=== PATIENT | female | born 2000 | race Hispanic/Latino ===

== ENCOUNTER 2021-03-06 10:08 | Emergency (ER) | payer OTHER, SELFPAY ==
[2021-03-06 10:43] LABS: Urine Bacteria <20 /HPF (<20); Urine RBC >50 /HPF (NONE SEEN)
[2021-03-06] MEDS ORDERED: ONDANSETRON 4 MG (ODT) TAB ONE (10:54)
[2021-03-06] MEDS ORDERED: SMZ./TMP. 800/160 MG TABLET ONE (10:59)
--- NOTE | 2021-03-06 11:46 | ER ---
Nurse's Notes [facility] Name: Jhonathan Guzman Age: 21 yrs Sex: Female : 2000 Arrival Date: 03/06/2021 Time: 10:10 Bed 7 Private MD: Diagnosis: UTI/ Urinary tract infection, site not specified Presentation: 03/06 10:21 Chief complaint: Patient states: L flank pain that radiates to ABD began last night, vg1 states blood in urine and burning upon urination began this morning. NV yesterday. Coronavirus screen: Vaccine status: Patient reports being unvaccinated. Client denies travel out of the [place] in the last 14 days. Ebola Screen: Patient negative for fever greater than or equal to 101.5 degrees Fahrenheit, and additional compatible Ebola Virus Disease symptoms. Initial Sepsis Screen: Does the patient meet any 2 criteria? HR > 90 bpm. Risk Assessment: Do you want to hurt yourself or someone else? Patient reports no desire to harm self or others. Onset of symptoms was March 05, 2021. 10:21 Method Of Arrival: Ambulatory vg1 10:21 Acuity: BRENDAN 3 vg1 10:28 Initial Sepsis Screen: Does the patient have a suspected source of infection? No. ll3 Patient's initial sepsis screen is negative. Triage Assessment: 10:23 General: Appears in no apparent distress. comfortable, Behavior is calm, cooperative. vg1 Pain: Denies pain. Complains of pain in Left flank and LLQ Pain currently is 0 out of 10 on a pain scale. at worst was 8 out of 10 on a pain scale. Also complains of nausea. 10:23 : Reports burning with urination, blood in urine. 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 Client reports having NOT received the Covid vaccine. - Social history:: Smoking status: Patient denies any tobacco usage or history of. Smoking status: Patient denies any tobacco usage or history of. Screenin:23 Abuse screen: Denies threats or abuse. Nutritional screening: No deficits noted. ll3 Tuberculosis screening: No symptoms or risk factors identified. 10:28 Fall Risk None identified. ll3 Assessment: 10:22 General: Appears in no apparent distress. comfortable, Behavior is calm, cooperative. ll3 Pain: Denies pain. Neuro: Level of Consciousness is awake, alert, obeys commands, Oriented to person, place, time, situation, Gait is steady, Speech is normal, Facial symmetry appears normal. Cardiovascular: Patient's skin is warm and dry. Respiratory: Airway is patent Trachea midline Respiratory effort is even, unlabored, Respiratory pattern is regular, symmetrical. GI: Abdomen is flat, non-distended. Derm: Skin is pink, warm \T\ dry. Musculoskeletal: Range of motion: intact in all extremities. 11:05 Reassessment: Patient appears in no apparent distress at this time. No changes from ll3 previously documented assessment. Patient and/or family updated on plan of care and expected duration. Pain level reassessed. Patient is alert, oriented x 3, equal unlabored respirations, skin warm/dry/pink. Patient denies pain at this time. Vital Signs: 10:16 BP 139 / 82; Pulse 80; Resp 16; Pulse Ox 100% ; ll3 10:21 BP 139 / 82; Pulse 105; Resp 16; Temp 99.0; Pulse Ox 100% ; Weight 58.97 kg; Height 4 vg1 ft. 11 in. (149.86 cm); Pain 5/10; 11:15 BP 120 / 74; Pulse 75; Resp 16; Pulse Ox 100% on R/A; ll3 11:53 BP 128 / 81; Pulse 73; Resp 16; Pulse Ox 100% ; ll3 10:21 Body Mass Index 26.26 (58.97 kg, 149.86 cm) vg1 ED Course: 10:10 Patient arrived in ED. ds1 10:15 Geremias Shore PA is PHCP. cp 10:15 Juanjose Saunders MD is Attending Physician. cp 10:18 Herminio Brandon RN is Primary Nurse. ll3 10:23 Triage completed. vg1 10:23 Patient has correct armband on for positive identification. Bed in low position. Call ll3 light in reach. Side rails up X 1. 10:23 Patient placed. vg1 10:27 Urine Microscopic Only Sent. ll3 11:54 No provider procedures requiring assistance completed. Patient did not have IV access ll3 during this emergency room visit. Administered Medications: 10:58 Drug: Zofran (Ondansetron) 4 mg Route: PO; jl7 11:30 Follow up: Response: No adverse reaction ll3 11:02 Drug: Bactrim (trimethoprim-sulfamethoxazole) (160 mg-800 mg (DS) 1 tablet Route: PO; ll3 11:39 Follow up: Response: No adverse reaction ll3 Outcome: 11:46 Discharge ordered by . bren 11:55 Discharged to home ambulatory. ll3 11:55 Condition: stable 11:55 Discharge instructions given to patient, Instructed on discharge instructions, follow up and referral plans. medication usage, Demonstrated understanding of instructions, follow-up care, medications, Prescriptions given X 3. 11:56 Patient left the ED. ll3 Signatures: Ping Melvin ds1 Geremias Shore PA PA cp Leal, Jahala, RN RN jl7 Izabela Chinchilla RN RN vg1 Herminio Brandon RN RN ll3
--- NOTE | 2021-03-06 11:46 | EDPHYS ---
Physician Documentation [facility] Name: Jhonathan Guzman Age: 21 yrs Sex: Female : 2000 Arrival Date: 03/06/2021 Time: 10:10 Bed 7 Private MD: ED Physician Juanjose Saunders HPI: 03/06 10:30 This 21 yrs old Female presents to ER via Ambulatory with complaints of Blood cp In Urine, Low Back Pain. 10:30 The patient presents with urinary symptoms, dysuria, hematuria. cp 10:30 Onset: The symptoms/episode began/occurred this morning. Associated signs and symptoms: cp Pertinent positives: nausea, left side low back pain that started last night, Pertinent negatives: constipation, fever, vomiting, abdominal pain. Severity of symptoms: in the emergency department the symptoms are unchanged, despite home interventions. 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 Client reports having NOT received the Covid vaccine. - Social history:: Smoking status: Patient denies any tobacco usage or history of. Smoking status: Patient denies any tobacco usage or history of. ROS: 10:35 Constitutional: Negative for body aches, chills, fever, poor PO intake. cp 10:35 Eyes: Negative for injury, pain, redness, and discharge. cp 10:35 ENT: Negative for ear pain, sore throat, difficulty swallowing, difficulty handling secretions. 10:35 Cardiovascular: Negative for chest pain. 10:35 Respiratory: Negative for cough, shortness of breath, wheezing. 10:35 Abdomen/GI: Positive for nausea, Negative for abdominal pain, vomiting, diarrhea, constipation, anorexia. 10:35 Back: Positive for pain at rest, of the left side of lower back. 10:35 : Positive for hematuria, burning with urination, Negative for vaginal bleeding, vaginal discharge. 10:35 Neuro: Negative for altered mental status, headache, numbness, weakness. 10:35 All other systems are negative. Exam: 10:40 Constitutional: The patient appears in no acute distress, alert, awake, comfortable, cp non-toxic, well developed, well nourished. 10:40 Head/Face: Normocephalic, atraumatic. cp 10:40 Eyes: Periorbital structures: appear normal, Conjunctiva: normal, no exudate, no injection, Sclera: no appreciated abnormality, Lids and lashes: appear normal, bilaterally. 10:40 ENT: External ear(s): are unremarkable, Nose: is normal, Mouth: Lips: moist, Oral mucosa: moist, Posterior pharynx: Airway: no evidence of obstruction, patent. 10:40 Chest/axilla: Inspection: normal. 10:40 Cardiovascular: Rate: tachycardic. 10:40 Respiratory: the patient does not display signs of respiratory distress, Respirations: normal, no use of accessory muscles. 10:40 Abdomen/GI: Inspection: abdomen appears normal, Palpation: abdomen is soft and non-tender, in all quadrants. 10:40 Back: pain, that is very mild, of the left side of lower back, ROM is normal. 10:40 Neuro: Gait: is steady, at a normal pace, without difficulty. Vital Signs: 10:16 BP 139 / 82; Pulse 80; Resp 16; Pulse Ox 100% ; ll3 10:21 BP 139 / 82; Pulse 105; Resp 16; Temp 99.0; Pulse Ox 100% ; Weight 58.97 kg; Height 4 vg1 ft. 11 in. (149.86 cm); Pain 5/10; 11:15 BP 120 / 74; Pulse 75; Resp 16; Pulse Ox 100% on R/A; ll3 11:53 BP 128 / 81; Pulse 73; Resp 16; Pulse Ox 100% ; ll3 10:21 Body Mass Index 26.26 (58.97 kg, 149.86 cm) vg1 MDM: 10:16 Patient medically screened. cp 11:00 Differential diagnosis: appendicitis, ectopic , ovarian cyst, pelvic cp inflammatory disease, urinary tract infection, vaginosis, kidney stone. 11:45 Data reviewed: vital signs, nurses notes, lab test result(s), and as a result, I will cp discharge patient. 11:45 Counseling: I had a detailed discussion with the patient and/or guardian regarding: the cp historical points, exam findings, and any diagnostic results supporting the discharge/admit diagnosis, lab results, to return to the emergency department if symptoms worsen or persist or if there are any questions or concerns that arise at home. Response to treatment: the patient's symptoms have markedly improved after treatment. 03/06 10:15 Order name: Urine Microscopic Only cp 03/06 10:16 Order name: Urine Microscopic Only; Complete Time: 10:54 EDMS 03/06 10:54 Interpretation: Normal except: UWBC >50; URBC >50. cp 03/06 10:42 Order name: Urine --Ancillary (enter results) em1 03/06 10:45 Order name: Urine Culture EDMS 03/06 10:15 Order name: Urine Dipstick-Ancillary (obtain specimen); Complete Time: 10:27 cp 03/06 10:15 Order name: Urine Test (obtain specimen); Complete Time: 10:27 cp 03/06 10:55 Order name: PO challenge; Complete Time: 11:02 cp Administered Medications: 10:58 Drug: Zofran (Ondansetron) 4 mg Route: PO; jl7 11:30 Follow up: Response: No adverse reaction ll3 11:02 Drug: Bactrim (trimethoprim-sulfamethoxazole) (160 mg-800 mg (DS) 1 tablet Route: PO; ll3 11:39 Follow up: Response: No adverse reaction ll3 Disposition Summary: 03/06/21 11:46 Discharge Ordered Location: Home cp Problem: new cp Symptoms: have improved cp Condition: Stable cp Diagnosis - UTI/ Urinary tract infection, site not specified cp Followup: cp - With: Private Physician - When: 1 - 2 days - Reason: Worsening of condition Discharge Instructions: - Discharge Summary Sheet cp - Urinary Tract Infection, Adult cp Forms: - Medication Reconciliation Form cp - Thank You Letter cp - Antibiotic Education cp - Prescription Opioid Use cp Prescriptions: - Zofran 4 mg Oral Tablet - take 1 tablet by ORAL route every 12 hours As needed; 20 tablet; Refills: 0, cp Product Selection Permitted - Bactrim DS 800-160 mg Oral Tablet - take 1 tablet by ORAL route every 12 hours for 7 days; 14 tablet; Refills: 0, cp Product Selection Permitted - Pyridium 200 mg Oral Tablet - take 1 tablet by ORAL route every 8 hours for 2 days; 6 tablet; Refills: 0, cp Product Selection Permitted Signatures: [facility] Geremias Shore PA PA cp Leal, Jahala RN RN jl7 Izabela Chinchilla RN RN vg1 Herminio Brandon RN RN ll3 Corrections: (The following items were deleted from the chart) 10:37 10:33 Urine Dipstick-Ancillary ordered. EDMS EDMS 11:00 10:57 Stone Protocol+CT.RAD.BRZ ordered. EDMS EDMS
[2021-03-06 12:22] VITALS: O2SAT 100
[2021-03-06 12:23] VITALS: TEMP 99
[2021-03-06 12:26] VITALS: BP 128/81
== END 2021-03-06 11:56 | disposition home or self-care (01) ==
LOC: ER 10:08
DX: N39.0 Urinary tract infection, site not specified (principal)
CPT/HCPCS: 81015; 81025; 87086; 87088; 99283

== ENCOUNTER 2021-07-15 11:12 | Emergency (ER) | payer SELFPAY ==
[2021-07-15 13:14] LABS: Urine Bacteria <20 /HPF (<20); Urine Mucus 1+ /HPF (NONE SEEN); Urine RBC TNTC /HPF (NONE SEEN)
[2021-07-15 13:15] LABS: Urine Urothelial Cells <5 /HPF (NONE SEEN)
[2021-07-15] MEDS ORDERED: LIDOCAINE 1% MPF 2 ML AMPULE ONE (13:37)
[2021-07-15] MEDS ORDERED: CEFTRIAXONE 1000 MG/VIAL ONE (13:37)
--- NOTE | 2021-07-15 13:41 | ER ---
Nurse's Notes [facility] Name: Jhonathan Guzman Age: 21 yrs Sex: Female : 2000 Arrival Date: 07/15/2021 Time: 11:20 Bed 9 Private MD: Diagnosis: Cystitis, unspecified with hematuria Presentation: 07/15 12:00 Chief complaint: Patient states: when she went to the restroom this morning, she ap3 noticed she was urinating blood. Patient states she was initially thinking she was developing a UTI, but when she saw the blood, she wanted to come get evaluated. Coronavirus screen: At this time, the client does not indicate any symptoms associated with coronavirus-19. Ebola Screen: No symptoms or risks identified at this time. Initial Sepsis Screen: Does the patient meet any 2 criteria? No. Patient's initial sepsis screen is negative. Does the patient have a suspected source of infection? No. Patient's initial sepsis screen is negative. Risk Assessment: Do you want to hurt yourself or someone else? Patient reports no desire to harm self or others. Onset of symptoms was July 15, 2021. 12:00 Method Of Arrival: Ambulatory ap3 12:00 Acuity: BRENDAN 3 ap3 Triage Assessment: 12:03 General: Appears in no apparent distress. Behavior is calm, cooperative, appropriate ap3 for age. Pain: Complains of pain in groin Aggravated by when urinating. Neuro: Level of Consciousness is awake, alert, obeys commands, Oriented to person, place, time, situation, Appropriate for age. Cardiovascular: Patient's skin is warm and dry. : Reports burning with urination, urgency, urinary frequency. 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 Flu vaccine is not up to date. - Social history:: Smoking status: Patient denies any tobacco usage or history of. Screenin:04 Abuse screen: Denies threats or abuse. Nutritional screening: No deficits noted. ap3 Tuberculosis screening: No symptoms or risk factors identified. 13:49 Fall Risk Total Rogers Fall Scale indicates No Risk (0-24 pts). ll1 Assessment: 13:11 Reassessment: No changes from previously documented assessment. Patient and/or family ll1 updated on plan of care and expected duration. Pain level reassessed. Patient is alert, oriented x 3, equal unlabored respirations, skin warm/dry/pink. 13:49 Reassessment: Patient appears in no apparent distress at this time. No changes from ll1 previously documented assessment. Patient and/or family updated on plan of care and expected duration. Pain level reassessed. Patient is alert, oriented x 3, equal unlabored respirations, skin warm/dry/pink. Vital Signs: 12:00 BP 126 / 70; Pulse 82; Resp 17; Temp 98.6; Pulse Ox 100% ; Weight 58.97 kg; Height 4 ap3 ft. 11 in. (149.86 cm); 13:49 BP 118 / 81; Pulse 66; Resp 16; ll1 12:00 Body Mass Index 26.26 (58.97 kg, 149.86 cm) ap3 ED Course: 11:20 Patient arrived in ED. mr 12:02 Triage completed. ap3 12:04 Arm band placed on right wrist. ap3 12:06 Edward Velasquez NP is PHCP. pm1 12:06 Dilcia Adair MD is Attending Physician. pm1 12:17 Francisco Phillips, THELMA is Primary Nurse. ll1 13:49 Patient has correct armband on for positive identification. Bed in low position. Call ll1 light in reach. 13:49 No provider procedures requiring assistance completed. Patient did not have IV access ll1 during this emergency room visit. Administered Medications: 13:41 Drug: Rocephin (cefTRIAXone) 1 grams Route: IM; Site: right vastus lateralis; ll1 13:48 Follow up: Response: No adverse reaction ll1 Outcome: 13:40 Discharge ordered by . pm1 13:49 Discharged to home ambulatory. ll1 13:49 Condition: stable 13:49 Discharge instructions given to patient, Instructed on discharge instructions, follow up and referral plans. medication usage, Demonstrated understanding of instructions, follow-up care, medications, Prescriptions given X 2. 13:50 Patient left the ED. ll1 Signatures: Gabriela Thompson mr Edward Velasquez NP SPECIAL EDUCATOR pm1 Shelby Farnsworth RN RN ap3 Francisco Phillips, RN RN ll1
--- NOTE | 2021-07-15 13:41 | EDPHYS ---
Physician Documentation [facility] Name: Jhonathan Guzman Age: 21 yrs Sex: Female : 2000 Arrival Date: 07/15/2021 Time: 11:20 Bed 9 Private MD: ED Physician Dilcia Adair HPI: 07/15 12:07 This 21 yrs old Female presents to ER via Ambulatory with complaints of pm1 Urinary Problem. 12:07 The patient presents with urinary symptoms, hematuria, burning with urination, pm1 suprapubic pain. 12:07 Onset: The symptoms/episode began/occurred today. Modifying factors: The symptoms are pm1 alleviated by nothing, the symptoms are aggravated by urinating. Associated signs and symptoms: Pertinent negatives: diarrhea, fever, nausea, vomiting. Severity of symptoms: in the emergency department the symptoms are unchanged. The patient has experienced a previous episode, Thanksgiving last year, UTI. The patient has not recently seen a physician. 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 Flu vaccine is not up to date. - Social history:: Smoking status: Patient denies any tobacco usage or history of. ROS: 12:07 Positive for urinary symptoms, hematuria, burning with urination. pm1 12:07 Constitutional: Negative for fever, chills, and weight loss, Cardiovascular: Negative for chest pain, palpitations, and edema, Respiratory: Negative for shortness of breath, cough, wheezing, and pleuritic chest pain, Abdomen/GI: Negative for abdominal pain, nausea, vomiting, diarrhea, and constipation, MS/Extremity: Negative for injury and deformity. 12:07 Skin: Negative for injury, rash, and discoloration, Neuro: Negative for headache, weakness, numbness, tingling, and seizure. 12:07 Back: Positive for flank pain, on the left. 12:07 All other systems are negative. Exam: 12:07 Constitutional: This is a well developed, well nourished patient who is awake, alert, pm1 and in no acute distress. 12:07 Back: No spinal tenderness. No costovertebral tenderness. Full range of motion. Skin: Warm, dry with normal turgor. Normal color with no rashes, no lesions, and no evidence of cellulitis. MS/ Extremity: Pulses equal, no cyanosis. Neurovascular intact. Full, normal range of motion. 12:07 Cardiovascular: Exam negative for acute changes, Rate: normal, Rhythm: regular, Pulses: no pulse deficits are appreciated. 12:07 Respiratory: Exam negative for acute changes, respiratory distress, shortness of breath. 12:07 Abdomen/GI: Inspection: abdomen appears normal, Palpation: abdomen is soft and non-tender, in all quadrants. 12:07 Neuro: Exam negative for acute changes, Orientation: is normal, Mentation: is normal, Motor: is normal, moves all fours. Vital Signs: 12:00 BP 126 / 70; Pulse 82; Resp 17; Temp 98.6; Pulse Ox 100% ; Weight 58.97 kg; Height 4 ap3 ft. 11 in. (149.86 cm); 13:49 BP 118 / 81; Pulse 66; Resp 16; ll1 12:00 Body Mass Index 26.26 (58.97 kg, 149.86 cm) ap3 MDM: 12:07 Patient medically screened. pm1 13:39 Data reviewed: vital signs. Data interpreted: Pulse oximetry: on room air is 100 %. pm1 Interpretation: normal. Counseling: I had a detailed discussion with the patient and/or guardian regarding: the historical points, exam findings, and any diagnostic results supporting the discharge/admit diagnosis, lab results, the need for outpatient follow up, to return to the emergency department if symptoms worsen or persist or if there are any questions or concerns that arise at home. 07/15 12:07 Order name: Urine Microscopic Only; Complete Time: 13:26 pm1 07/15 12:07 Order name: Urine Dipstick-Ancillary (obtain specimen); Complete Time: 12:44 pm1 07/15 12:07 Order name: Urine Test (obtain specimen); Complete Time: 13:48 pm1 07/15 13:18 Order name: Urine Culture EDMS Administered Medications: 13:41 Drug: Rocephin (cefTRIAXone) 1 grams Route: IM; Site: right vastus lateralis; ll1 13:48 Follow up: Response: No adverse reaction ll1 Disposition Summary: 07/15/21 13:40 Discharge Ordered Location: Home pm1 Problem: new pm1 Symptoms: have improved pm1 Condition: Stable pm1 Diagnosis - Cystitis, unspecified with hematuria pm1 Followup: pm1 - With: Emergency Department - When: As needed - Reason: Worsening of condition Followup: pm1 - With: Private Physician - When: 2 - 3 days - Reason: Recheck today's complaints, Continuance of care, Re-evaluation by your physician Discharge Instructions: - Discharge Summary Sheet pm1 - Urinary Tract Infection, Adult pm1 Forms: - Medication Reconciliation Form pm1 - Thank You Letter pm1 - Antibiotic Education pm1 - Prescription Opioid Use pm1 - Work release form ll1 Prescriptions: - Bactrim DS 800-160 mg Oral Tablet - take 1 tablet by ORAL route every 12 hours for 10 days; 20 tablet; Refills: 0, pm1 Product Selection Permitted - Pyridium 200 mg Oral Tablet - take 1 tablet by ORAL route every 8 hours for 3 days; 9 tablet; Refills: 0, pm1 Product Selection Permitted Signatures: Dispatcher [employer] [facility] Edward Velasquez, DISPLAY COORDINATOR DISPLAY COORDINATOR pm1 Shelby Farnsworth RN RN ap3 Francisco Phillips RN RN ll1 Corrections: (The following items were deleted from the chart) 12:55 12:44 URINALYSIS+U.LAB.BRZ ordered. [facility] EDCO 14:35 14:33 The patient presents with urinary symptoms, hematuria, burning with urination, pm1 suprapubic pain, pm1
[2021-07-15 17:59] VITALS: TEMP 98.6; O2SAT 100
[2021-07-15 18:00] VITALS: BP 118/81
== END 2021-07-15 13:50 | disposition home or self-care (01) ==
LOC: ER 11:12
DX: N30.91 Cystitis, unspecified with hematuria (principal)
CPT/HCPCS: 81015; 87086; 87088; 96372; 99283

== ENCOUNTER 2021-07-17 10:39 | Emergency (ER) | payer SELFPAY ==
[2021-07-17] MEDS ORDERED: ONDANSETRON 4 MG/2 ML VIAL ONE ×2 (11:14→12:13)
[2021-07-17] MEDS ORDERED: FAMOTIDINE 20 MG/2 ML VIAL IV ONE (11:15)
[2021-07-17 11:22] LABS: Urine Blood 2+ (Negative); Urine Glucose 1+ (Negative); Urine Protein 3+ (Negative); Urine Specific Gravity 1.015 (1.005-1.030)
[2021-07-17 11:35] LABS: Absolute Lymphocytes (CBC) 0.5 K/uL (0.7-4.9); Lymphocytes % 4.5 % (15.3-44.8); MPV 7.6 fL (7.6-11.3); RBC Red Blood Cell Count 4.63 M/uL (3.86-4.86)
[2021-07-17] MEDS ORDERED: CEFTRIAXONE 1000 MG/VIAL ONE (11:46)
[2021-07-17] MEDS ORDERED: NA CHLORIDE 0.9% 100 ML IV ONE (11:47)
[2021-07-17 11:50] LABS: Protime INR 1.24
[2021-07-17 12:18] LABS: Bilirubin Total 0.5 mg/dL (0.2-1.0); Potassium 3.7 mmol/L (3.5-5.1); Protein, Total 8.3 g/dL (6.4-8.2)
[2021-07-17 12:52] LABS: Urine Specific Gravity/Preg 1.015 (1.005-1.030)
[2021-07-17 13:56] LABS: Blood Morphology Comment NOT SEEN (NOT SEEN); Platelet Estimate ADEQ; White Blood Cell Scan OK (OK)
[2021-07-17] MEDS ORDERED: NA CHLORIDE 0.9% 1,000 ML ONE (14:48)
[2021-07-17] MEDS ORDERED: ACETAMINOPHEN 325 MG TABLET ONE (14:54)
--- NOTE | 2021-07-17 15:43 | EDPHYS ---
Physician Documentation [facility] Name: Jhonathan Guzman Age: 21 yrs Sex: Female : 2000 Arrival Date: 07/17/2021 Time: 10:40 Bed 18 Private MD: ED Physician Jac Cr HPI: 07/17 11:30 This 21 yrs old Female presents to ER via Ambulatory with complaints of kdr Vomiting, Back Pain. 11:30 The patient presents to the emergency department with nausea, that is mild, vomiting, kdr that is intermittent. Onset: The symptoms/episode began/occurred gradually, 3 day(s) ago. Possible causes: UTI. The symptoms are aggravated by food , The symptoms are alleviated by nothing. Associated signs and symptoms: Pertinent positives: abdominal pain, fever, hematuria, nausea, vomiting. Severity of symptoms: At their worst the symptoms were mild moderate just prior to arrival, in the emergency department the symptoms have improved markedly. The patient has experienced a previous episode, Patient was seen here several days ago for a UTI. She was discharged on medications but has been unable to keep her medicines down. The patient has been recently seen at the [facility] Emergency Department, this week. Historical: - Allergies: 10:59 No Known Allergies; ab2 - PMHx: 10:59 None; ab2 - Immunization history:: Adult Immunizations up to date. - Social history:: Smoking status: Patient denies any tobacco usage or history of. ROS: 11:30 Constitutional: Negative for fever, chills, and weight loss, Eyes: Negative for injury, kdr pain, redness, and discharge, Neck: Negative for injury, pain, and swelling, Cardiovascular: Negative for chest pain, palpitations, and edema, Respiratory: Negative for shortness of breath, cough, wheezing, and pleuritic chest pain, Back: Negative for injury and pain, : Negative for injury, bleeding, discharge, and swelling, MS/Extremity: Negative for injury and deformity, Skin: Negative for injury, rash, and discoloration, Neuro: Negative for headache, weakness, numbness, tingling, and seizure activity. Psych: Negative for depression, anxiety, suicide ideation, homicidal ideation, and hallucinations, Allergy/Immunology: Negative for hives, rash, and allergies, Endocrine: Negative for neck swelling, polydipsia, polyuria, polyphagia, and marked weight changes, Hematologic/Lymphatic: Negative for swollen nodes, abnormal bleeding, and unusual bruising. 11:30 Abdomen/GI: Positive for abdominal pain, nausea and vomiting, Negative for abdominal cramps, abdominal distension, anorexia, black/tarry stool, rectal pain, rectal bleeding, bowel incontinence. Exam: 11:30 Constitutional: This is a well developed, well nourished patient who is awake, alert, kdr and in no acute distress. Head/Face: Normocephalic, atraumatic. Eyes: Pupils equal round and reactive to light, extra-ocular motions intact. Lids and lashes normal. Conjunctiva and sclera are non-icteric and not injected. Cornea within normal limits. Periorbital areas with no swelling, redness, or edema. Neck: Trachea midline, no thyromegaly or masses palpated, and no cervical lymphadenopathy. Supple, full range of motion without nuchal rigidity, or vertebral point tenderness. No Meningismus. Chest/axilla: Normal chest wall appearance and motion. Nontender with no deformity. No lesions are appreciated. Cardiovascular: Regular rate and rhythm with a normal S1 and S2. No gallops, murmurs, or rubs. Normal PMI, no JVD. No pulse deficits. Respiratory: Lungs have equal breath sounds bilaterally, clear to auscultation and percussion. No rales, rhonchi or wheezes noted. No increased work of breathing, no retractions or nasal flaring. Abdomen/GI: Soft, non-tender, with normal bowel sounds. No distension or tympany. No guarding or rebound. No evidence of tenderness throughout. Back: No spinal tenderness. No costovertebral tenderness. Full range of motion. Skin: Warm, dry with normal turgor. Normal color with no rashes, no lesions, and no evidence of cellulitis. MS/ Extremity: Pulses equal, no cyanosis. Neurovascular intact. Full, normal range of motion. Neuro: Awake and alert, GCS 15, oriented to person, place, time, and situation. Cranial nerves II-XII grossly intact. Motor strength 5/5 in all extremities. Sensory grossly intact. Cerebellar exam normal. Normal gait. Psych: Awake, alert, with orientation to person, place and time. Behavior, mood, and affect are within normal limits. Vital Signs: 10:57 BP 127 / 75; Pulse 96; Resp 17; Temp 98.3(O); Pulse Ox 97% on R/A; Weight 58.97 kg; ab2 Height 4 ft. 11 in. (149.86 cm); 12:00 BP 93 / 47; Pulse 76; Resp 24; Pulse Ox 100% ; bp 13:00 BP 99 / 61; Pulse 74; Resp 20; Pulse Ox 100% ; bp 14:00 BP 92 / 54; Pulse 86; Resp 24; Pulse Ox 100% ; bp 15:00 BP 92 / 56; Pulse 81; Resp 19; Pulse Ox 100% ; bp 15:54 BP 99 / 51; Pulse 86; Resp 19; Pulse Ox 100% ; bp 10:57 Body Mass Index 26.26 (58.97 kg, 149.86 cm) ab2 MDM: 15:42 Patient medically screened. kdr 17:16 Data reviewed: vital signs, nurses notes, lab test result(s), radiologic studies. kdr Counseling: I had a detailed discussion with the patient and/or guardian regarding: the historical points, exam findings, and any diagnostic results supporting the discharge/admit diagnosis, lab results, the need for outpatient follow up. 07/17 10:41 Order name: Blood Culture Adult (2) kdr 07/17 10:41 Order name: CBC with Diff; Complete Time: 14:09 kdr 07/17 10:41 Order name: CMP; Complete Time: 13:50 kdr 07/17 10:41 Order name: Lactate; Complete Time: 13:50 [facility] 07/17 10:41 Order name: Protime (+inr); Complete Time: 13:50 kdr 07/17 10:41 Order name: Ptt, Activated; Complete Time: 13:50 kdr 07/17 11:23 Order name: Urine Dipstick-Ancillary; Complete Time: 13:50 EDMS 07/17 11:24 Order name: Urine --Ancillary (enter results); Complete Time: 13:50 em1 07/17 13:56 Order name: CBC Smear Scan; Complete Time: 14:09 EDMS 07/17 10:41 Order name: Accucheck; Complete Time: 11:15 kdr 07/17 10:41 Order name: Cardiac monitoring; Complete Time: 11:15 kdr 07/17 10:41 Order name: EKG - Nurse/Tech; Complete Time: 12:03 kdr 07/17 10:41 Order name: IV Saline Lock - Large Bore; Complete Time: 11:15 kdr 07/17 10:41 Order name: Labs collected and sent; Complete Time: 11:15 kdr 07/17 10:41 Order name: O2 Per Protocol; Complete Time: 11:15 kdr 07/17 10:41 Order name: O2 Sat Monitoring; Complete Time: 11:15 kdr 07/17 13:51 Order name: PO challenge; Complete Time: 14:40 kdr Administered Medications: 11:15 Drug: Zofran (Ondansetron) 4 mg Route: IVP; Site: right antecubital; bp 11:39 Follow up: Response: No adverse reaction bp 11:15 Drug: Pepcid (famotidine) 20 mg Route: IVP; Site: right antecubital; bp 11:39 Follow up: Response: No adverse reaction bp 11:46 Drug: Rocephin - (cefTRIAXone) 1 grams Route: IVPB; Infused Over: 30 mins; Site: right bp antecubital; 15:55 Follow up: IV Status: Completed infusion; IV Intake: 100ml bp 12:13 Drug: Zofran (Ondansetron) 4 mg Route: IVP; Site: right antecubital; bp 13:56 Follow up: Response: No adverse reaction bp 14:55 Drug: NS 0.9% 1000 ml Route: IV; Rate: 1 bolus; Site: right antecubital; bp 15:55 Follow up: IV Status: Completed infusion; IV Intake: 1000ml bp 14:55 Drug: Tylenol 650 mg Route: PO; bp 15:55 Follow up: Response: Pain is decreased bp Disposition Summary: 07/17/21 15:42 Discharge Ordered Location: Home kdr Problem: new kdr Symptoms: have improved kdr Condition: Stable kdr Diagnosis - UTI/ Urinary tract infection, site not specified kdr - Vomiting kdr Followup: kdr - With: Private Physician - When: 2 - 3 days - Reason: If symptoms return, Further diagnostic work-up, Recheck today's complaints, Continuance of care, Re-evaluation by your physician Discharge Instructions: - Discharge Summary Sheet kdr - Dysuria kdr - Urinary Tract Infection, Adult, [id number] kdr Forms: - Medication Reconciliation Form kdr - Thank You Letter kdr - Antibiotic Education kdr - Family Work Release ss Prescriptions: - Zofran 4 mg Oral Tablet - take 1 tablet by ORAL route every 4-6 hours As needed; 12 tablet; Refills: 0, kdr Product Selection Permitted Signatures: Dispatcher [employer] Jac Daniels MD MD kdr Peltier, Brian, RN RN Jhony Rogers
--- NOTE | 2021-07-17 15:43 | ER ---
Nurse's Notes [facility] Name: Jhonathan Guzman Age: 21 yrs Sex: Female : 2000 Arrival Date: 07/17/2021 Time: 10:40 Bed 18 Private MD: Diagnosis: UTI/ Urinary tract infection, site not specified;Vomiting Presentation: 07/17 10:57 Chief complaint: Patient states: "I was here a couple days ago for a UTI. Last night I ab2 noticed I started having a fever and increased pain in my back." Pt c/o bilateral flank pain. Pt states she still has discomfort with urinating but there is no longer blood in her urine. Coronavirus screen: Vaccine status: Patient reports being unvaccinated. Client denies travel out of the [place] in the last 14 days. At this time, the client does not indicate any symptoms associated with coronavirus-19. Ebola Screen: Patient negative for fever greater than or equal to 101.5 degrees Fahrenheit, and additional compatible Ebola Virus Disease symptoms Patient denies exposure to infectious person. Patient denies travel to an Ebola-affected area in the 21 days before illness onset. No symptoms or risks identified at this time. Initial Sepsis Screen: Does the patient meet any 2 criteria? No. Patient's initial sepsis screen is negative. Does the patient have a suspected source of infection? No. Patient's initial sepsis screen is negative. Risk Assessment: Do you want to hurt yourself or someone else? Patient reports no desire to harm self or others. Onset of symptoms is unknown. 10:57 Method Of Arrival: Ambulatory ab2 10:57 Acuity: BRENDAN 3 ab2 Triage Assessment: 11:00 General: Appears in no apparent distress. uncomfortable, Behavior is calm, cooperative, ab2 appropriate for age. Pain: Complains of pain in low back area and right low back. Neuro: Level of Consciousness is awake, alert, obeys commands, Oriented to person, place, time, situation, Appropriate for age [place] Hammerer are equal bilaterally Moves all extremities. Gait is steady. Cardiovascular: No deficits noted. Denies chest pain, shortness of breath. Respiratory: Airway is patent Respiratory effort is even, unlabored, Respiratory pattern is regular, symmetrical. GI: No deficits noted. No signs and/or symptoms were reported involving the gastrointestinal system. : Reports pain in bilateral flank(s). Historical: - Allergies: 10:59 No Known Allergies; ab2 - PMHx: 10:59 None; ab2 - Immunization history:: Adult Immunizations up to date. - Social history:: Smoking status: Patient denies any tobacco usage or history of. Screenin:00 Abuse screen: Denies threats or abuse. Denies injuries from another. Nutritional bp screening: No deficits noted. Tuberculosis screening: No symptoms or risk factors identified. Fall Risk None identified. Assessment: 11:00 General: SEE TRIAGE NOTE. bp 13:00 Reassessment: No changes from previously documented assessment. Patient and/or family bp updated on plan of care and expected duration. Pain level reassessed. 15:00 Reassessment: Patient and/or family updated on plan of care and expected duration. Pain bp level reassessed. PO CHALLENGE SUCCESSFUL Patient states symptoms have improved. GI: Abdomen is non-distended, Bowel sounds present X 4 quads. 15:54 Reassessment: PT D/C HOME AMBULATORY WITH FAMILY, DX WITH UTI AND VOMITING. bp Vital Signs: 10:57 BP 127 / 75; Pulse 96; Resp 17; Temp 98.3(O); Pulse Ox 97% on R/A; Weight 58.97 kg; ab2 Height 4 ft. 11 in. (149.86 cm); 12:00 BP 93 / 47; Pulse 76; Resp 24; Pulse Ox 100% ; bp 13:00 BP 99 / 61; Pulse 74; Resp 20; Pulse Ox 100% ; bp 14:00 BP 92 / 54; Pulse 86; Resp 24; Pulse Ox 100% ; bp 15:00 BP 92 / 56; Pulse 81; Resp 19; Pulse Ox 100% ; bp 15:54 BP 99 / 51; Pulse 86; Resp 19; Pulse Ox 100% ; bp 10:57 Body Mass Index 26.26 (58.97 kg, 149.86 cm) ab2 ED Course: 10:40 Patient arrived in ED. as 10:41 Jac Cr MD is Attending Physician. kdr 10:59 Triage completed. ab2 11:00 Palmer Clark, THELMA is Primary Nurse. bp 11:00 Patient has correct armband on for positive identification. Bed in low position. Call bp light in reach. Side rails up X2. Adult w/ patient. 11:01 Arm band placed on right wrist. ab2 11:15 Inserted saline lock: 20 gauge in right antecubital area, using aseptic technique. bp Blood collected. 15:51 No provider procedures requiring assistance completed. IV discontinued, intact, ss bleeding controlled, No redness/swelling at site. Pressure dressing applied. Administered Medications: 11:15 Drug: Zofran (Ondansetron) 4 mg Route: IVP; Site: right antecubital; bp 11:39 Follow up: Response: No adverse reaction bp 11:15 Drug: Pepcid (famotidine) 20 mg Route: IVP; Site: right antecubital; bp 11:39 Follow up: Response: No adverse reaction bp 11:46 Drug: Rocephin - (cefTRIAXone) 1 grams Route: IVPB; Infused Over: 30 mins; Site: right bp antecubital; 15:55 Follow up: IV Status: Completed infusion; IV Intake: 100ml bp 12:13 Drug: Zofran (Ondansetron) 4 mg Route: IVP; Site: right antecubital; bp 13:56 Follow up: Response: No adverse reaction bp 14:55 Drug: NS 0.9% 1000 ml Route: IV; Rate: 1 bolus; Site: right antecubital; bp 15:55 Follow up: IV Status: Completed infusion; IV Intake: 1000ml bp 14:55 Drug: Tylenol 650 mg Route: PO; bp 15:55 Follow up: Response: Pain is decreased bp Intake: 15:55 IV: 1000ml; Total: 1000ml. bp 15:55 IV: 100ml; Total: 1100ml. bp Outcome: 15:42 Discharge ordered by . kdr 15:51 Discharged to home ambulatory, with family. ss 15:51 Condition: good 15:51 Discharge instructions given to patient, Instructed on discharge instructions, follow up and referral plans. Demonstrated understanding of instructions, follow-up care, Prescriptions given X 1. 15:54 Patient left the ED. ss Signatures: Jac Cr MD MD kdr Martinez, Amelia as Smirch, Shelby, RN RN ss Palmer Clark, RN RN bp Jhony Ignacio ab2
[2021-07-17 19:41] VITALS: TEMP 98.3
[2021-07-17 19:42] VITALS: O2SAT 100
[2021-07-17 19:48] VITALS: BP 99/51
--- NOTE | 2021-07-18 07:48 | EKG ---
Test Date: 2021-07-17 Test Time: 11:58:45 Oil Well Pumper: HENRIQUE MEASUREMENT RESULTS: Intervals: Rate: 71 OR: 132 QRSD: 72 QT: 380 QTc: 412 [place]idan: P: 77 OR: 132 QRS: 92 T: 79 INTERPRETIVE STATEMENTS: Normal sinus rhythm Rightward axis Borderline ECG No previous ECG available for comparison Electronically Signed On 07-18-21 07:46:11 CDT by Salvatore Vann
== END 2021-07-17 15:54 | disposition home or self-care (01) ==
LOC: ER 10:39
DX: N39.0 Urinary tract infection, site not specified (principal)
CPT/HCPCS: 36415; 80053; 81003; 81025; 83605; 85025; 85610; 85730; 87040; 93005; 96365; 96366; 96375; 99284; J2405; J7030

== ENCOUNTER 2021-12-14 13:11 | Emergency (ER) | payer SELFPAY ==
--- OUTSIDE RECORDS SUMMARY | 2021-12-14 13:13 | XMS REPORT | Continuity of Care Document ---
:2000 Author Organization [facility] t Address [address] [place] [address] [address] [place] [address] Care Team Providers Name Role Phone Kareem Carmichael MD Attending Clinician [phone] KAREEM CARMICHAEL Attending Clinician Unavailable Problems This patient has no known problems. Allergies, Adverse Reactions, Alerts Allergy Allergy Status Severity Reaction(s) Onset Inactive Treating Comm ents Source Name Type Date Date Clinician NO KNOWN Allergy Active [facility] [place] Family History Family Member Diagnosis Comments Start Date Stop Date Source Maternal grandmother Breast cancer C [facility] Social History Social Habit Start Date Stop Date Quantity Comments Source History SDOH [facility] Alcohol Comment Medical C enter History SDOH [facility] Alcohol Std Drinks [facility] History SDOH [facility] Alcohol Binge [facility] Tobacco use and 2021-08-14 2021-08-[address] [facility] exposure 00:00:00 00:00:00 [facility] Alcohol intake 2021-08-14 2021-08-[address] [facility]00 non-drinker Medical Cent[facility] r (finding) History SDOH 2021-08-14 2021-08-[address] [facility] Alcohol Frequency 00:00:00 00:00:00 [facility] Sex Assigned At [address] [facility] 00:[facility]00 00:00:00 [facility] Smoking Status Start Date Stop Date Source Never smoker [facility] Medications This patient has no known medications. Vital Signs Vital Name Observation Time Observation Value Comments Source HEIGHT 2021-08-14 14:00:00 149.9 cm WEIGHT 2021-08-14 14:00:00 59.024 kg HEIGHT 2021-08-14 14:00:00 149.9 cm WEIGHT 2021-08-14 14:00:00 59.024 kg Systolic blood 2021-08-14 14:00:00 137 mm[Hg] [facility] Diastolic blood 2021-08-14 14:00:00 82 mm[Hg] [facility] Heart rate 2021-08-14 14:00:00 89 /min [facility] Body temperature 2021-08-14 14:00:00 36.22 [facility] Body height 2021-08-14 14:00:00 149.9 cm [facility] Body weight 2021-08-14 14:00:00 59.024 kg [facility] BMI 2021-08-14 14:00:00 26.28 kg/m2 [facility] Procedures This patient has no known procedures. Plan of Care Planned Activity Planned Date Details Comments Source Future Scheduled 2021-12-[address] [facility] Test 00:00:00 (#1) [code = Medical Center INFLUENZA VACCINE (#1)] Future Scheduled 2020-01-[address] [facility] Test 00:00:00 malignant neoplasm of Medica l Center cervix (procedure) [code = 519140589] Future Scheduled 2018 DTAP/TDAP/TD VACCINES [facility] Test 00:00:00 (1 - Tdap) [code = Medical C enter DTAP/TDAP/TD VACCINES (1 - Tdap)] Future Scheduled 2017 HEPATITIS C SCREENING [facility] Test 00:00:00 [code = HEPATITIS C Medical Center SCREENING] Future Scheduled 2000 COVID-19 VACCINE (#1) [facility] Test 00:00:00 [code = COVID-[address] VACCINE (#1)] Future Scheduled [address] [facility] Test 00:00:00 Chlamydia trachomatis [facility] (procedure) [code = 874573554] Encounters Start End Encounter Admission Attending Care Care Encounter Source Date/Time Date/Time Type Type Clinicians Facility Department ID 2021-08-14 2021-08-14 ALAINA Castillo [id number] [facility] 15:[facility]00 15[facility]00 [facility] 2021-08-14 2021-08-14 Outpatient TONA CARMICHAEL [facility] [id number] 13:51:18 14:11:39 [facility] 2021-08-13 2021-08-[address] [facility] [id number] [facility] St 00:00:00 00:00:00 [facility] Results This patient has no known results.
[2021-12-14 13:33] LABS: Urine Blood 2+ (Negative); Urine Glucose Negative (Negative); Urine Protein Negative (Negative); Urine Specific Gravity 1.015 (1.005-1.030); Urine pH 7.5 (5.0-7.0)
[2021-12-14] MEDS ORDERED: NA CHLORIDE 0.9% 1,000 ML ONE (13:39)
[2021-12-14 13:58] LABS: Absolute Lymphocytes (CBC) 2.6 K/uL (0.7-4.9); Hematocrit 36.2 % (36.0-45.0); Lymphocytes % 25.4 % (15.3-44.8); MCV 84.2 fL (80-100); MPV 7.7 fL (7.6-11.3)
--- NOTE | 2021-12-14 15:14 | RAD REPORT ---
EXAM DESCRIPTION: US - OB Limited - 12/14/2021 2:28 pm CLINICAL HISTORY: with pelvic pain COMPARISON: None FINDINGS: Single live intrauterine is variable presentation. Amniotic fluid normal. Placen ta is anterior. No subchorionic/retroplacental bleed Cervix 3.8 centimeters. Right and left adnexae are unremarkable BPD 2.8 centimeters 14 weeks 6 days HC 10.4 centimeters 14 weeks 6 days HC 8.3 centimeters 14 weeks 4 days FL 1.5 centimeters 14 weeks 3 days IMPRESSION: Single live intrauterine in variable presentation The estimated gestational age 14 weeks 3 days CARLOS June 11, 2022 Normal amniotic fluid If a survey is desired it should be performed in approximately 4 weeks
--- NOTE | 2021-12-14 15:38 | ER ---
Nurse's Notes [facility] Name: Jhonathan Guzman Age: 21 yrs Sex: Female : 2000 Arrival Date: 12/14/2021 Time: 13:12 Bed 7 Private MD: Diagnosis: 14 weeks gestation of Presentation: 12/14 13:18 Chief complaint: Patient states: found out she is and is having spotting and iw low abd pain and pain down left side , is approx 6-8 weeks , has been spotting on and off through the month of november. Coronavirus screen: At this time, the client does not indicate any symptoms associated with coronavirus-19. Ebola Screen: Patient negative for fever greater than or equal to 101.5 degrees Fahrenheit, and additional compatible Ebola Virus Disease symptoms Patient denies exposure to infectious person. Patient denies travel to an Ebola-affected area in the 21 days before illness onset. No symptoms or risks identified at this time. Initial Sepsis Screen: Does the patient meet any 2 criteria? No. Patient's initial sepsis screen is negative. Does the patient have a suspected source of infection? No. Patient's initial sepsis screen is negative. Risk Assessment: Do you want to hurt yourself or someone else? Patient reports no desire to harm self or others. Onset of symptoms was November 2021. 13:18 Method Of Arrival: Ambulatory iw 13:18 Acuity: BRENDAN 3 iw FELLER HAND: 13:39 2, Living 0 snw 13:59 1 em6 Historical: - Allergies: 13:20 No Known Allergies; iw - Home Meds: 13:20 None [Active]; iw - PMHx: 13:20 None; iw - PSHx: 13:20 None; iw - Immunization history:: Adult Immunizations unknown. - Social history:: Smoking status: . Screenin:25 Abuse screen: Denies threats or abuse. Nutritional screening: No deficits noted. em6 Tuberculosis screening: No symptoms or risk factors identified. Fall Risk IV access (20 points). Total Rogers Fall Scale indicates No Risk (0-24 pts). Assessment: 13:25 General: Appears in no apparent distress. comfortable, Behavior is calm, cooperative, em6 appropriate for age. Pain: Complains of pain in suprapubic area, right lower quadrant and left lower quadrant Pain radiates to suprapubic area Pain currently is 0 out of 10 on a pain scale. Quality of pain is described as crampy, Pain began 1 day ago. Is intermittent, lasting a few seconds. Neuro: Mora Agitation-Sedation Scale (RASS): 0 - Alert and Calm Level of Consciousness is awake, alert, obeys commands, Oriented to person, place, time, situation. Cardiovascular: Heart tones present Capillary refill < 3 seconds Patient's skin is warm and dry. Respiratory: Airway is patent Respiratory effort is even, unlabored, Respiratory pattern is regular, symmetrical, Breath sounds are clear bilaterally. GI: Abdomen is non-distended, Reports lower abdominal pain, vomiting. : Reports cramping, suprapubic area. vaginal bleeding that is spotty. EENT: No signs and/or symptoms were reported regarding the EENT system. Derm: No signs and/or symptoms reported regarding the dermatologic system. Musculoskeletal: Circulation, motion, and sensation intact. Range of motion: intact in all extremities. 15:46 Reassessment: Patient appears in no apparent distress at this time. Patient and/or jd3 family updated on plan of care and expected duration. Pain level reassessed. Patient is alert, oriented x 3, equal unlabored respirations, skin warm/dry/pink. Vital Signs: 13:18 BP 134 / 85; Pulse 85; Resp 16; Temp 98.4; Pulse Ox 100% on R/A; Weight 61.23 kg; iw Height 4 ft. 11 in. (149.86 cm); 15:46 BP 109 / 89; Pulse 84; Resp 16; Pulse Ox 100% on R/A; jd3 13:18 Body Mass Index 27.27 (61.23 kg, 149.86 cm) iw ED Course: 13:12 Patient arrived in ED. am2 13:14 Marcel[facility]. snw 13:14 Jac Cr MD is Attending Physician. snw 13:20 Triage completed. iw 13:20 Arm band placed on. iw 13:23 Jasen Iverson RN is Primary Nurse. jd3 13:25 Patient has correct armband on for positive identification. Bed in low position. Call em6 light in reach. Side rails up X 1. Pulse ox on. NIBP on. Warm blanket given. 14:00 Type And Screen Sent. em6 14:29 OB Limited In Process Unspecified. EDMS 15:47 No provider procedures requiring assistance completed. IV discontinued, intact, jd3 bleeding controlled, No redness/swelling at site. Pressure dressing applied. Administered Medications: 13:40 Drug: NS 0.9% 1000 ml Route: IV; Rate: 1000 ml; Site: left antecubital; em6 14:40 Follow up: Response: No adverse reaction; IV Status: Completed infusion jd3 Medication: 13:59 VIS not applicable for this client. em6 Outcome: 15:37 Discharge ordered by . snw 15:48 Discharged to home ambulatory, with family. jd3 15:48 Condition: stable 15:48 Discharge instructions given to patient, family, Instructed on discharge instructions, follow up and referral plans. Demonstrated understanding of instructions, follow-up care. 15:48 Patient left the ED. jd3 Signatures: Dispatcher [employer] EDMS Marcela Amaya, CORE CARRIER-C CORE CARRIER-Csnw Rosaura Sanchez, RN Shelby Horan Jonathon, RN RN jBrittany Gill RN RN em6
--- NOTE | 2021-12-14 15:38 | EDPHYS ---
Physician Documentation [facility] Name: Jhonathan Guzman Age: 21 yrs Sex: Female : 2000 Arrival Date: 12/14/2021 Time: 13:12 Bed 7 Private MD: ED Physician Jac Cr HPI: 12/14 13:39 This 21 yrs old Female presents to ER via Ambulatory with complaints of snw Vaginal Bleeding. 13:39 The patient presents with vaginal bleeding that is spotting. Onset: The snw symptoms/episode began/occurred suddenly, 3 day(s) ago, and became persistent. Associated signs and symptoms: Pertinent positives: cramping. Severity of symptoms: At their worst the symptoms were mild. The patient has experienced a previous episode, last . Initial appt with Dr. Syed 12/22/21. 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 - Social history:: Smoking status: . ROS: 13:37 Constitutional: Negative for fever, chills, and weight loss, Eyes: Negative for injury, snw pain, redness, and discharge, ENT: Negative for injury, pain, and discharge, Neck: Negative for injury, pain, and swelling, Cardiovascular: Negative for chest pain, palpitations, and edema, Respiratory: Negative for shortness of breath, cough, wheezing, and pleuritic chest pain, Abdomen/GI: Negative for abdominal pain, nausea, vomiting, diarrhea, and constipation, Back: Negative for injury and pain, MS/Extremity: Negative for injury and deformity, Skin: Negative for injury, rash, and discoloration, Neuro: Negative for headache, weakness, numbness, tingling, and seizure, Psych: Negative for depression, anxiety, suicide ideation, homicidal ideation, and hallucinations. 13:37 : Positive for abdominal cramping and black blood spotting for several days. , Pt has an appt with Dr. Syed on 12/22/21. Exam: 13:37 Constitutional: This is a well developed, well nourished patient who is awake, alert, snw and in no acute distress. Head/Face: Normocephalic, atraumatic. Eyes: Pupils equal round and reactive to light, extra-ocular motions intact. Lids and lashes normal. Conjunctiva and sclera are non-icteric and not injected. Cornea within normal limits. Periorbital areas with no swelling, redness, or edema. ENT: Nares patent. No nasal discharge, no septal abnormalities noted. Tympanic membranes are normal and external auditory canals are clear. Oropharynx with no redness, swelling, or masses, exudates, or evidence of obstruction, uvula midline. Mucous membranes moist. Neck: Trachea midline, no thyromegaly or masses palpated, and no cervical lymphadenopathy. Supple, full range of motion without nuchal rigidity, or vertebral point tenderness. No Meningismus. Chest/axilla: Normal chest wall appearance and motion. Nontender with no deformity. No lesions are appreciated. 13:37 Respiratory: Lungs have equal breath sounds bilaterally, clear to auscultation and percussion. No rales, rhonchi or wheezes noted. No increased work of breathing, no retractions or nasal flaring. Abdomen/GI: Soft, non-tender, with normal bowel sounds. No distension or tympany. No guarding or rebound. No evidence of tenderness throughout. Back: No spinal tenderness. No costovertebral tenderness. Full range of motion. Skin: Warm, dry with normal turgor. Normal color with no rashes, no lesions, and no evidence of cellulitis. MS/ Extremity: Pulses equal, no cyanosis. Neurovascular intact. Full, normal range of motion. Neuro: Awake and alert, GCS 15, oriented to person, place, time, and situation. Cranial nerves II-XII grossly intact. Motor strength 5/5 in all extremities. Sensory grossly intact. Cerebellar exam normal. Normal gait. 13:37 Cardiovascular: Rate: tachycardic, Rhythm: regular, Heart sounds: murmur. Vital Signs: 13:18 BP 134 / 85; Pulse 85; Resp 16; Temp 98.4; Pulse Ox 100% on R/A; Weight 61.23 kg; iw Height 4 ft. 11 in. (149.86 cm); 15:46 BP 109 / 89; Pulse 84; Resp 16; Pulse Ox 100% on R/A; jd3 13:18 Body Mass Index 27.27 (61.23 kg, 149.86 cm) iw MDM: 13:21 Patient medically screened. snw 15:38 Data reviewed: vital signs, nurses notes. Data interpreted: Pulse oximetry: on room air snw is 100 %. Interpretation: normal. Counseling: I had a detailed discussion with the patient and/or guardian regarding: the historical points, exam findings, and any diagnostic results supporting the discharge/admit diagnosis, lab results, radiology results, the need for outpatient follow up, to return to the emergency department if symptoms worsen or persist or if there are any questions or concerns that arise at home. Response to treatment: the patient's symptoms have markedly improved after treatment. Special discussion: Based on the patient's Hx, exam, and Dx evaluation, there is no indication for emergent surgery or inpatient Tx. It is understood by the patient/guardian that if the Sx's persist or worsen they need to return immediately for re-evaluation. Based on the history and exam findings, there is no indication for further emergent testing or inpatient evaluation. I discussed with the patient/guardian the need to see the OB Gyne specialist for further evaluation of the symptoms. 12/14 13:16 Order name: Basic Metabolic Panel [facility] 12/14 13:16 Order name: CBC with Diff; Complete Time: 14:10 snw 12/14 13:16 Order name: Quantitative Hcg snw 12/14 13:16 Order name: Type And Screen; Complete Time: 15:01 snw 12/14 13:33 Order name: Urine Dipstick-Ancillary; Complete Time: 13:34 EDMS 12/14 13:16 Order name: IV Saline Lock; Complete Time: 14:00 snw 12/14 13:16 Order name: Labs collected and sent; Complete Time: 14:00 snw 12/14 13:16 Order name: NPO; Complete Time: 13:23 snw 12/14 13:16 Order name: Urine Dipstick-Ancillary (obtain specimen); Complete Time: 13:37 snw 12/14 13:37 Order name: Urine --Ancillary (enter results) em1 12/14 14:29 Order name: OB Limited; Complete Time: 15:18 EDMD 12/14 14:11 Order name: Labs - recollect needed: recollect gree top hemolyzed; Complete Time: 14:51 eb Administered Medications: 13:40 Drug: NS 0.9% 1000 ml Route: IV; Rate: 1000 ml; Site: left antecubital; em6 14:40 Follow up: Response: No adverse reaction; IV Status: Completed infusion jd3 Disposition: 16:53 Co-signature as Attending Physician, Jac Cr MD I agree with the assessment and kdr plan of care. Disposition Summary: 12/14/21 15:37 Discharge Ordered Location: Home snw Condition: Stable snw Diagnosis - 14 weeks gestation of snw Followup: snw - With: Emergency Department - When: As needed - Reason: Worsening of condition Followup: snw - With: Private Physician - When: As Scheduled with Dr. Syed - Reason: Recheck today's complaints, Continuance of care, Re-evaluation by your physician Discharge Instructions: - Discharge Summary Sheet snw - Abdominal Pain During snw - Care snw Forms: - Medication Reconciliation Form snw - Thank You Letter snw - Antibiotic Education snw - Prescription Opioid Use snw Signatures: Dispatcher [employer] EDMS Jac Cr MD MD kdr Waters, Shelly, LIVESTOCK DEALER-C LIVESTOCK DEALER-Csnw Rosaura Sanchez, RN RN iw Helen Welch Erika, RN RN em6 Jasen Iverson RN jd3 Corrections: (The following items were deleted from the chart) 13:57 13:17 ABO/RH TYPING+BB.LAB.BRZ ordered. EDMS EDMS 14:29 13:17 Transvaginal Ob+US.RAD.BRZ ordered. EDMS EDMS
[2021-12-14 15:55] VITALS: TEMP 98.4; O2SAT 100
[2021-12-14 15:57] VITALS: BP 109/89
[2021-12-14 15:58] LABS: Potassium 3.7 mmol/L (3.5-5.1)
[2021-12-14 16:52] LABS: Urine Specific Gravity/Preg 1.015 (1.005-1.030)
== END 2021-12-14 15:48 | disposition home or self-care (01) ==
LOC: ER 13:11
DX: O46.92 Antepartum hemorrhage, unspecified, second trimester (principal); Z3A.14 14 weeks gestation of pregnancy
CPT/HCPCS: 36415; 76815; 80048; 81003; 81025; 84702; 85025; 86850; 86900; 86901; 96360; 99284; J7030